=== PATIENT | female | born 1985 | race Caucasian/White ===

== ENCOUNTER → 2016-11-18 | Emergency (ER) | payer OTHER ==
[2016-11-18 19:37] LABS: APPEARANCE CLEAR (CLEAR); BILIRUBIN NEGATIVE (NEGATIVE); COLOR YELLOW (YELLOW); GLUCOSE NEGATIVE (NEGATIVE); KETONE NEGATIVE (NEGATIVE); LEUKOCYTE ESTERASE NEGATIVE (NEGATIVE); NITRITE NEGATIVE (NEGATIVE); PROTEIN NEGATIVE (NEGATIVE); UROBILINOGEN NORMAL (NORMAL)
[2016-11-18 19:41] LABS: RED CELLS - URINE RARE /hpf (0-5); WHITE CELLS - URINE RARE /hpf (0-5)
== END | disposition home or self-care (01) ==
LOC: D.ER 18:25
PROVIDERS: Family Medicine
DX: R31.9 Hematuria, unspecified (principal); R39.11 Hesitancy of micturition; R35.0 Frequency of micturition

== ENCOUNTER 2017-01-02 13:26 | Emergency (ER) | payer OTHER | END 2017-01-02 16:15 | disposition home or self-care (01) | LOC: D.ER 13:26 | DX: K80.50 Calculus of bile duct without cholangitis or cholecystitis without obstruction (principal) ==